=== PATIENT | male | born 1990 | race Caucasian/White ===

== ENCOUNTER 2020-10-28 23:41 | Emergency (ER) | payer MEDICAID, SELFPAY ==
[2020-10-28 23:41] VITALS: BP 128/73; PULSE 73; RESP 16; TEMP 36; O2SAT 98; BMI 22.6
[2020-10-28] MEDS: Lidocaine 1% (20 ml mdv) 20 ML Vial INFILT (23:54)
--- NOTE | 2020-10-29 00:02 | ED.VIS.GEN ---
History of Present Illness Chief Complaint: Dental Narrative: Patient presents with dental pain, this started a few days ago, he has chronic recurrent dental pain and widespread dental decay. He has no fever or chills. He also wants me to assess why his feet are more sweaty than normal. He has no fever or chills he has no chest pain shortness of breath, he has no trauma to his feet. He denies being out in the cold. Past Medical History - Allergies and Home Meds Allergies/Adverse Reactions: Allergies No Known Allergies Allergy (Verified 10/28/20 23:43) Primary Care Physician: NOT,DEFINED [Primary Care Provider] - Past Medical History: None Smoking Status: Former smoker Review of Systems All systems negative except as indicated General: Denies: Fever Eyes: Denies: Visual changes - bilaterally ENT: Reports: - - Dental pain as in HPI Respiratory: Denies: Dyspnea, Cough Gastrointestinal: Denies: Abdominal pain Musculoskeletal: Reports: Extremity Pain Skin: Reports: Rash, - Neurological: Denies: Weakness Hematologic: Denies: Easy bruising, Easy bleeding Physical Exam Vital Signs/Narrative: Vital Signs Temp Pulse Resp BP Pulse Ox 10/28/20 23:41 96.8 F L 73 16 128/73 H 98 General: Well nourished, Well developed Head: Normocephalic, Atraumatic Eyes: Negative for: Pale conjunctiva ENT: - - Widespread dental decay, there is an abscess left lower second molar region, this is a periapical abscess, there is surrounding dental decay to both the molars. Neck: Supple Cardiovascular: Regular rate, Regular rhythm Respiratory: No distress Abdomen: Soft, Nontender Extremities: - - He has tenderness over his feet but no cellulitis see below Skin: - - Very faint erythematous rash over his feet, it is blanching. There is no signs of calor or cellulitis. 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 Patient will be placed on antibiotics. Procedure note: Incision and drainage of dental abscess Verbal consent 1% lidocaine, total of 2 mL were inserted 11. Blade I incised the abscess and its self draining. Patient tolerated procedure well. ED Disposition - Plan for ED Patient: Disposition: Psychiatric Hospital or Unit Diagnosis: Dental abscess, Dyshidrosis Instructions: Dental Abscess Prescriptions: Penicillin V Potassium 500 mg PO 4X/DAY #40 tab Transmission Status: Pending to [facility] #30 Referrals: NOT,DEFINED [Primary Care Provider] - 2 Days
[2020-10-29] MEDS: Penicillin Vk 250 MG Tablet 500 MG PO (00:18)
== END 2020-10-29 00:29 | disposition home or self-care (01) ==
LOC: ED 10-29 00:27
PROVIDERS: Emergency Provider Emergency Medicine
DX: K04.7 Periapical abscess without sinus (principal); L30.1 Dyshidrosis [pompholyx]; Z87.891 Personal history of nicotine dependence
CPT/HCPCS: 41800; 64999; 99283

== ENCOUNTER 2021-01-31 16:24 | Emergency (ER) | payer MEDICAID, SELFPAY ==
[2021-01-31 16:26] VITALS: BP 134/83; PULSE 94; RESP 18; TEMP 36.4; O2SAT 95; BMI 22.6
--- NOTE | 2021-01-31 16:59 | ED.VISSUMM ---
- ER Visit Summary Date of Service: 01/31/21 Chief Complaint: Possible Covid History of Present Illness: The patient is a 30 M who presents with possible COVID-19. Patient states that over the past 3 days he has been having some fatigue and weakness. Patient states this is generalized. Patient states nothing makes it better nothing makes it worse. Patient denies any loss of taste or smell. Patient states there have been some of his coworkers who have recently tested positive for COVID-19. Patient denies any shortness of breath or cough. Patient denies any fevers or chills. Patient denies any chest pain. Physical Examination: Vital signs are stable. Patient is afebrile. Patient is in no acute distress. Oral mucosa is pink and moist. Neck is supple. Trachea is midline. There is no JVD noted. Heart was regular rate and rhythm. Lungs are clear but diminished bilaterally. Abdomen is soft. Bowel sounds are normal. There is no tenderness. There is no rebound or guarding noted. Skin is warm dry. Cranial nerves II through XII are intact. There are no focal motor or sensory deficits noted. Extremities are intact. There is no calf tenderness or edema. Test Results: COVID-19 rapid antigen was obtained and was negative. Emergency Department Course and Treatment: Patient was advised of his findings. Patient was instructed to drink plenty of fluids. Patient was instructed to follow-up with his primary care physician in 5 to 7 days. Patient understood and was agreeable with the plan. All questions were answered. Disposition: Discharge home Impression: Viral illness This note was generated with [employer] dictation software. It may contain incorrect words, spelling, and punctuation that were not noted in review of the chart prior to signing ED Disposition - Plan for ED Patient: Disposition: Home or Assisted Living Diagnosis: Viral illness Instructions: ED Viral Syndrome (Adult) Referrals: NOT,DEFINED [NON-STAFF] - 5-7 Days
[2021-01-31 18:00] VITALS: PULSE 88; RESP 16; O2SAT 98
== END 2021-01-31 18:00 | disposition home or self-care (01) ==
PROVIDERS: Emergency Provider Emergency Medicine
DX: B34.9 Viral infection, unspecified (principal); Z20.822 Contact with and (suspected) exposure to COVID-19; Z72.0 Tobacco use
CPT/HCPCS: 87426; 99282

== ENCOUNTER 2021-02-02 11:05 | Emergency (ER) | payer MEDICAID, SELFPAY ==
[2021-02-02 11:07] VITALS: BP 135/77; PULSE 92; RESP 16; TEMP 36.6; O2SAT 97; BMI 22.6
--- NOTE | 2021-02-02 11:21 | RAD_ITS ---
STUDY: X-RAY - RIGHT HAND REASON FOR EXAM: Male, 30 years old. injury TECHNIQUE: 4 view(s) of the hand. COMPARISON: None. FINDINGS: Normal radiocarpal articulation. Normal distal radioulnar joint. Normal visualized carpal bones. Normal carpal articulations Normal carpometacarpal articulation of the thumb. Normal second through fifth carpometacarpal joints. Normal metacarpi. Normal metacarpophalangeal joint of the thumb. Normal interphalangeal joint of the thumb. Normal proximal and distal phalanges of the thumb. Normal metacarpophalangeal joints of the second through fifth fingers. Normal proximal and distal interphalangeal joints of the second through fifth fingers. Normal phalanges of the second through fifth fingers. The soft tissue structures are unremarkable. RAD/Hand Min 3 Views IMPRESSION: Normal x-ray examination of the hand. Electronically Signed: Demetrius Chi MD at 12:10 EDT Tel , Service support ,
--- NOTE | 2021-02-02 11:21 | RAD_ITS ---
STUDY: X-RAY - RIGHT WRIST REASON FOR EXAM: Male, 30 years old. injury TECHNIQUE: 3 view(s) of the wrist were obtained. COMPARISON: None. FINDINGS: Normal visualized distal radius and ulna. Normal radiocarpal articulation. Normal distal radioulnar articulation. Normal carpal bones. Normal carpal articulations. Normal carpometacarpal articulation of the thumb. Normal second through fifth carpometacarpal articulations. Normal visualized metacarpal bones. The soft tissue structures are unremarkable. RAD/Wrist min 3 Views IMPRESSION: Normal x-ray examination of the wrist. Electronically Signed: Demetrius Chi MD at 12:10 EDT Tel , Service support ,
--- NOTE | 2021-02-02 11:23 | ED.DCSUM_ITS ---
History of Present Illness Chief Complaint: Upper Extremity Injury Informant: Patient Occurred: Yesterday Mechanism/Context: Fall, Slip - wet landscape timber, FOOSH Context: Sudden Onset Timing: Continuous Quality of Pain: Aching Location: R hand 5th ray, wrist Current Severity: Moderate Maximum Severity: Severe Worsened by: movement Relieved by: remaining still Associated Symptoms: Negative for: Parasthesia, Weakness, Loss of Funtion Narrative: Patient had an accidental fall onto outstretched hand yesterday, he is right- hand dominant. Painful to bend his fingers with regards to the fifth metacarpal, he has some pain around the distal ulna/carpus but only when he supinates/pronates. Past Medical History - Allergies and Home Meds Allergies/Adverse Reactions: Allergies No Known Allergies Allergy (Verified 01/31/21 16:25) Primary Care Physician: Care Physician,No Primary [Primary Care Provider] - Past Medical History: None Smoking Status: Current every day smoker Review of Systems General: Denies: Chills, Fever, Sweats Musculoskeletal: Reports: Extremity Pain. Denies: Swelling Skin: Denies: Rash, Wounds - No break in skin or bleeding Neurological: Denies: Headache, Weakness, Numbness Physical Exam Vital Signs/Narrative: Vital Signs Temp Pulse Resp BP Pulse Ox 02/02/21 11:07 97.8 F 92 16 135/77 H 97 General: Well nourished, Well developed, - - Well-appearing NAD Head: Normocephalic, Atraumatic ENT: No Trauma, Moist Mucous Membranes Extremeties: Tenderness at the distal aspect of the right fifth metacarpal. Finger itself is nontender. Base of the metacarpals are nontender and without deformity. There is a very slight rotational deformity of the right small finger suggesting slight external rotation of the proximal phalanx on the metacarpal. No bony wrist tenderness, he has some pain with extreme pronation or supination, but is able to range it otherwise without difficulty or pain. Skin: Normal color - Except for skin overlying right MCP J which is erythematous, but the skin is intact, No rash, No Trauma Neurological: Alert, Oriented x3, Cranial nerves II-XII grossly intact, Normal Strength, Normal Sensation Psychological: Normal affect Diagnostic/Tx/Re-eval Clinical Impression(s) from Imaging Studies Hand X-Ray 02/02/21 11:21 IMPRESSION: Normal x-ray examination of the hand. Electronically Signed: Demetrius Chi MD at 12:10 EDT Tel , Service support , Wrist X-Ray 02/02/21 11:21 IMPRESSION: Normal x-ray examination of the wrist. Electronically Signed: Demetrius Chi MD at 12:10 EDT Tel , Service support , - Medical Decision Making On my interpretation 4 view x-ray series of the right hand is negative, and 3 v iew x-ray series of the right wrist is negative. Radiology confirms both of these. Patient was reassured, he probably sprained this, the rotational deformity that I possibly found was very subtle if present and probably is his normal. He was given an Arnold wrap NSAID and appropriate discharge instructions. ED Disposition - Plan for ED Patient: Disposition: Home or Assisted Living Diagnosis: Sprain of finger of right hand Instructions: ED Hand Sprain Referrals: Malou Mancilla [NON-STAFF] - 1-2 Weeks (if not improving) Additional Instructions: Ice, ibuprofen as needed for pain
[2021-02-02] MEDS: Naproxen 500 MG Tablet PO (13:00)
== END 2021-02-02 13:00 | disposition home or self-care (01) ==
PROVIDERS: Emergency Provider Emergency Medicine
DX: S63.616A Unspecified sprain of right little finger, initial encounter (principal); F17.200 Nicotine dependence, unspecified, uncomplicated; W01.0XXA Fall on same level from slipping, tripping and stumbling without subsequent striking against object, initial encounter; Y93.89 Activity, other specified; Y92.89 Other specified places as the place of occurrence of the external cause; Y99.8 Other external cause status
CPT/HCPCS: 73110; 73130; 99283

== ENCOUNTER 2021-02-11 06:33 | Emergency (ER) | payer MEDICAID, SELFPAY ==
[2021-02-11 06:35] VITALS: BP 127/93; PULSE 74; RESP 16; TEMP 36.2; O2SAT 97; BMI 22.7
--- NOTE | 2021-02-11 06:44 | RAD_ITS ---
STUDY: X-RAY CHEST REASON FOR EXAM: Male, 30 years old. cough TECHNIQUE: Single AP portable view of the chest. COMPARISON: None. FINDINGS: There are no confluent pulmonary infiltrates. There is no demonstrated pleural abnormality. Normal size heart. Normal mediastinum and gris. Normal visualized aortic arch and descending thoracic aorta. There are no demonstrated acute fractures or destructive bone lesions. There is no demonstrated abnormality of the visualized soft tissue structures of the upper abdomen. RAD/Chest 1 View (Portable) IMPRESSION: Normal x-ray examination of the chest. Electronically Signed: Naveen Hill MD at 7:20 EDT , Service support ,
--- NOTE | 2021-02-11 07:17 | ED.VIS.GEN ---
History of Present Illness Chief Complaint: General Illness Informant: Patient Onset: Days Context: Gradual Onset Timing: Continuous Narrative: Patient evaluated for 1 week of upper respiratory symptoms. He states he has had runny nose, postnasal drip and cough. He states there is so much mucus that is going to his stomach making him feel nauseous. He states the mucus is clear. He denies any fever or chills. He denies any sick contacts. He states he has had both Covid vaccines. He has tried beji-bwi-rhhwpla decongestants and nasal sprays. He states that helped temporarily but then the symptoms come back. He denies any significant history of seasonal allergies. He does smoke cigarettes. No other complaints at this time. Past Medical History - Allergies and Home Meds Allergies/Adverse Reactions: Allergies No Known Allergies Allergy (Verified 02/11/21 06:34) Primary Care Physician: Care Physician,No Primary [Primary Care Provider] - Past Medical History: None Surgical History: noncontributory Smoking Status: Former smoker Review of Systems General: Reports: Malaise. Denies: Chills, Fever, Sweats Eyes: Denies: Visual changes - bilaterally, Diplopia ENT: Reports: Rhinorrhea. Denies: Bilateral ear pain, Sore throat Cardiovascular: Denies: Chest pain, Palpitations Respiratory: Reports: Cough, Sputum. Denies: Dyspnea, Dyspnea on exertion Gastrointestinal: Denies: Abdominal pain, Nausea, Vomiting, Diarrhea, Melena, Hematochezia Genitourinary: Denies: Dysuria, Hematuria, Frequency Musculoskeletal: Denies: Back pain, Extremity Pain Skin: Denies: Rash, Wounds Neurological: Denies: Headache, Weakness, Numbness Physical Exam Vital Signs/Narrative: Vital Signs Temp Pulse Resp BP Pulse Ox 02/11/21 06:35 97.2 F L 74 16 127/93 H 97 Inital Vital Signs reviewed: Yes General: Well nourished, Well developed, No Acute Distress Head: Normocephalic, Atraumatic Eyes: Perrl, EOMI ENT: Moist mucous membranes, Nasal congestion, - - Poor dentition. Posterior pharynx erythema. No tonsillar exudates or swelling noted.. Negative for: Sinus tenderness Neck: Supple, Nontender. Negative for: No lymphadenopathy - Mild, bilateral Cardiovascular: Regular rate, Regular rhythm, No murmurs Respiratory: No distress, Chest nontender, - - Mild crackles throughout Abdomen: Soft, Nontender, Nondistended, Normal bowel sounds Back: Nontender, Normal Inspection Extremities: Nontender, No edema Skin: Normal color, No rash Neurological: Alert, Oriented x3, Cranial nerves II-XII grossly intact, Normal Strength, Normal Sensation Psychological: Normal affect, Normal Mood Diagnostic/Tx/Re-eval Chest X-Ray - ED: 1 View, Read by ED Physician, Read by Radiologist, No Acute Disease Clinical Impression(s) from Imaging Studies Chest X-Ray 02/11/21 06:44 IMPRESSION: Normal x-ray examination of the chest. Electronically Signed: Naveen Hill MD at 7:20 EDT , Service support , - Medical Decision Making Patient is evaluated for rhinorrhea and congestion. He is well-appearing. His vital signs are normal. Differential includes viral syndrome versus seasonal allergies. Chest x-ray does not show any acute infiltrate. Covid test is negative. Patient be treated symptomatically. I do not think he needs any antibiotics. Instructed to use decongestions, Zyrtec and Flonase. Instructed to follow-up with her primary care doctor. Counseled return precautions. Verbalizes agreement understand with this plan. Patient is referred to PCP from the no doc list. Patient is counseled on signs and symptoms requiring return to the emergency room. Patient verbalizes agreement and understand this plan. Patient discharged home in stable and improved condition. ED Disposition - Plan for ED Patient: Disposition: Home or Assisted Living Diagnosis: URI (upper respiratory infection) Instructions: ED URI, Viral, No Abx (Adult) Prescriptions: Fluticasone 0.05% [Flonase Nasal [place]] 1 spray NASAL DAILY #1 bottle Transmission Status: Pending to [facility] #30 Cetirizine HCl [Zyrtec] 10 mg PO DAILY #14 tablet Transmission Status: Pending to [facility] #30 Referrals: Cris Mcnamara MD [STAFF PHYSICIAN] - Additional Instructions: Use hfbb-vyo-luvkroo decongestant such as Mucinex DM for symptom control. The typical course will run 2 to 3 weeks. Use oimq-uzf-elagega cough medications as needed. Follow-up with primary care doctor return the emergency room if no improvement or worsening respiratory symptoms
== END 2021-02-11 07:38 | disposition home or self-care (01) ==
PROVIDERS: Emergency Provider Emergency Medicine
DX: J06.9 Acute upper respiratory infection, unspecified (principal); F17.210 Nicotine dependence, cigarettes, uncomplicated
CPT/HCPCS: 71045; 87426; 99282

== ENCOUNTER 2021-06-03 07:51 | Emergency (ER) | payer MEDICAID, SELFPAY ==
[2021-06-03 07:52] VITALS: BP 107/80; PULSE 71; RESP 16; TEMP 36.4; O2SAT 97; BMI 22.4
--- NOTE | 2021-06-03 08:11 | EKG12_ITS ---
Test Reason : CP Blood Pressure : / mmHG Vent. Rate : 062 BPM Atrial Rate : 062 BPM P-R Int : 148 ms QRS Dur : 106 ms QT Int : 404 ms P-R-T Axes : 044 -30 062 degrees QTc Int : 410 ms Normal sinus rhythm Left axis deviation Abnormal ECG Confirmed by DOLLY REYES, LAKSHMI ([id number]), legal editor CRISTOFER MACEDO ([id number]) on 06/06/2021 9:18:25 AM Referred By: NORIS Confirmed By:AGNIESZKA ALBERTO MD
--- NOTE | 2021-06-03 08:11 | RAD_ITS ---
STUDY: X-RAY CHEST REASON FOR EXAM: Male, 30 years old. 2 day history of chest pain worse with deep inspiration. TECHNIQUE: PA and lateral views of the chest. COMPARISON: Comparison is made with prior study dated 02/11/2021. FINDINGS: Hyperinflation. There is no demonstrated pleural abnormality. Normal size heart. Normal mediastinum and gris. There is prominence of the pulmonary hilar arteries without peripheral pulmonary vascular congestion, suggesting pulmonary hypertension. Normal visualized aortic arch and descending thoracic aorta. Normal visualized thoracic spine. Normal visualized ribs, clavicles, and shoulders. There is no demonstrated abnormality of the visualized soft tissue structures of the upper abdomen. RAD/Chest PA and Lateral IMPRESSION: Hyperinflation. Prominence of the central pulmonary arteries. Electronically Signed: Raffy Dowd MD at 8:45 EDT , Service support ,
--- NOTE | 2021-06-03 08:12 | EDS_ITS ---
HPI History of Present Illness Chief Complaint: Chest Other Detail of Chief Complaint: Left-sided chest pain that started yesterday Informant: patient Narrative Narrative: Patient states that he got up for work yesterday and was having left- sided chest pain. He denies any injury or any lifting injury. Patient states pain is worse with certain movements and deep breath. He has never had pain like this before. He rates his pain currently an 8 out of 10. Denies any shortness of breath but does hurt to take a deep breath. Denies recent travel or surgery. No history of PE or DVT. [facility] Medical History (Updated 06/03/21 @ 09:[address] Trevon Chance, DO) Back pain Home Medications hydrocodone-acetaminophen 1 tab PO Q4H PRN PRN 2 Days #10 tablet 06/03/21 [Rx Last Taken Unknown] hydrocodone-acetaminophen 1 tab PO Q6H PRN PRN 06/03/21 [History Last Taken Unknown] ibuprofen 1 mg PO Q8H PRN PRN 06/03/21 [History Last Taken Unknown] Allergy/AdvReac Type Severity Reaction Status Date / Time No Known Allergies Allergy Verified 06/03/21 07:51 Social History Smoking Status: Former smoker ROS ROS ED Review of Systems ROS Unobtainable: other Constitutional Constitutional ED: Reports lethargy; Denies chills, fever(s), sweats or weight loss Eyes Eyes: Denies blurry vision, change in vision or diplopia ENT ENT ED: Denies rhinorrhea or sore throat Cardiovascular Cardiovascular: Reports chest pain; Denies orthopnea or racing heartbeat Respiratory/Chest Respiratory/Chest: Reports dyspnea and dyspnea on exertion; Denies cough, orthopnea or sputum Gastrointestinal Gastrointestinal: Denies abdominal pain, diarrhea, nausea or vomiting Genitourinary Genitourinary ED: Denies dysuria, hematuria or urinary frequency Musculoskeletal Musculoskeletal: Denies arthralgias, back pain, myalgias or neck pain Integumentary Denies abscess, Abrasions or rash Neurologic Neurologic: Denies headache(s) or weakness Psychiatric Psychiatric: Denies anxiety, depression or suicidal thoughts Endocrine Endocrinology: Denies polydipsia, polyphagia or polyuria Hematologic/Lymphatic Hematologic/Lymphatic: Denies easy bleeding, easy bruising or lymphadenopathy Allergic/Immunologic Allergic/Immunologic ED: Denies mouth swelling, tongue swelling or urticaria EXAM Physical Exam Const Vital Signs: 06/03/21 07:52 06/03/21 07:57 Temperature 97.6 F L Temperature Source Temporal Pulse Rate 71 Respiratory Rate 16 Respiratory Effort Normal Non-Labored Respiratory Pattern Normal Blood Pressure 107/80 Blood Pressure Mean 89 Pulse Ox 97 Oxygen Delivery Method Room Air Positive well nourished and well developed General Appearance ED: well developed and NAD HEENT Reports TM's clear and moist mucous membranes normocephalic and atraumatic; Negative for trauma or tenderness Tympanic Membrane ED: Yes TM's clear Eyes PERRL and EOMs intact bilaterally General Eye ED: Negative for pale conjunctiva or scleral icterus Neck no lymphadenopathy, supple and no JVD General: Negative for tenderness Chest Wall inspection of chest normal and palpation of chest normal Chest: Negative for tenderness Resp normal respiratory effort and clear to auscultation bilaterally Resp Narrative: Patient has some discomfort with palpation the left chest wall that seems to somewhat reproduce his pain. Effort and Inspection: pain with movement; Negative for respiratory distress Auscultation: Negative for rhonchi, wheezes or diminished lung sounds Cardio regular rate, regular rhythm, S1 normal heart sound, S2 normal heart sound and no murmurs Peripheral Pulses: pulses 2+ throughout GI normal to inspection, nondistended, normoactive bowel sounds, soft to palpation, non-tender, non-distended and no masses Back/Spine no CVA tenderness and no thoracic nor lumbar tenderness Extremity normal to inspection General Extremety ED: Negative for edema General Extremity: Negative for edema Neuro oriented x3, CN's II-XII intact bilaterally, no sensory deficits noted and gait normal Sensorium / Orientation: awake, alert, oriented to person, oriented to place and oriented to time Motor Exam: strength 5/5 throughout and strength abnormal Psych mental status grossly normal Skin no rashes or lesions noted and no wounds Heart Score History: Slightly/Non-Suspicious ECG: Normal Age: </= 45 years Risk Factors: 1 or 2 Risk Factors Troponin: </= Normal Limit Score: 1 MDM MDM MDM Narrative Medical decision making narrative: Etiology of patient's chest pain unclear although I suspect likely musculoskeletal chest pain. Patient will be given a prescription for few [place] for pain. He did receive some Toradol in the department but really did not have much pain relief with that. 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 Patient advised return if worsening pain increasing shortness of breath, or conditions worsen anyway. Lab Data Attestation: I reviewed the patient's lab results. Labs: Laboratory Results - last 24 hr 06/03/21 06/03/21 06/03/21 08:25 08:25 08:25 WBC 6.7 RBC 5.37 Hgb 16.3 Hct 47.3 MCV 88.1 MCH 30.4 MCHC 34.5 RDW Std Deviation 41.5 RDW Coeff of [place] 12.9 Plt Count 169 MPV 10.6 Immature Gran % (Auto) 0.300 Neut % (Auto) 61.6 Lymph % (Auto) 27.2 [place] % (Auto) 7.3 Eos % (Auto) 3.0 Baso % (Auto) 0.6 Absolute Neuts (auto) 4.1 Absolute Lymphs (auto) 1.83 Nucleated RBC % 0 D-Dimer Quant (PE/DVT) <= 0.27 Sodium 139 Potassium 4.2 Chloride 106 Carbon Dioxide 29.0 Anion Gap 4 L BUN 12 Creatinine 0.90 Estim Creat Clear Calc 106.14 Est GFR (MDRD) Af Amer 127 Est GFR (MDRD) Non-Af 105 BUN/Creatinine Ratio 13.4 Glucose 95 Calcium 8.7 Troponin I High Sens 3.6 Radiography Chest X-Ray - ED: 1 View Diagnostic Testing: Radiology Impression Chest X-Ray 06/03/21 08:11 IMPRESSION: Hyperinflation. Prominence of the central pulmonary arteries. Electronically Signed: Raffy Dowd MD at 8:45 EDT , Service support , 1 view chest x-ray obtained interpreted by myself as no acute disease process. Radiology was in agreement. EKG Initial EKG: Attestation: I personally reviewed and interpreted this EKG as follows: Comments: Sinus rhythm with a ventricular rate of 62 bpm with a left axis deviation Prior EKG tracings: not available for review Discharge Plan Triage Chief Complaint: Chest Other ED Provider: Trevon Chance Dx/Rx/DC Orders Clinical Impression: Acute chest wall pain Instructions: ED Chest Wall Pain, Costochondritis Prescriptions: New hydrocodone-acetaminophen [hydrocodone-acetaminophen] 1 TABLET tablet 1 tab PO Q4H PRN PRN (Reason: Pain) 2 Days Qty: 10 RF: 0 No Action hydrocodone-acetaminophen 5-325 mg tablet 1 tab PO Q6H PRN PRN (Reason: Pain) RF: 0 ibuprofen 600 mg tablet 1 mg PO Q8H PRN PRN (Reason: Pain) RF: 0 Primary Care Provider: Care Physician,No Primary Referrals: Luke Arriola MD [STAFF PHYSICIAN] - 3-5 Days Care Physician,No Primary [Primary Care Provider] - Disposition Disposition: Home, Self Care
[2021-06-03 08:38] LABS: Absolute Lymphocyte Count 1.83 X10^3/uL (0.83-4.51); Absolute Neutrophil Count 4.1 X10^3/uL (2.0-7.7); Basophil# 0.04 X10^3/uL; Basophil% 0.6 % (0-1); Hematocrit 47.3 % (40-54); Hemoglobin 16.3 g/dL (13.0-16.5); Lymphocyte # 1.83 X10^3/ul (0.83-4.51); Lymphocyte % 27.2 % (19-41); Mean Corp Hgb Conc 34.5 g/dL (32-36); Mean Corpuscular Hgb 30.4 pg (27.0-32.0); Mean Corpuscular Volume 88.1 fL (80-94); Mean Platelet Vol. 10.6 fl (6.2-12.0); Monocyte# 0.49 X10^3/uL; Monocyte% 7.3 % (0-10); NRBC Flagged by Analyzer 0 % (0-5); Neutrophil # 4.14 X10^3/uL (2.7-7.7); Neutrophil % 61.6 % (47-70); Platelet Count 169 K/mm3 (150-450); RBC Distribution Width CV 12.9 % (11.6-14.6); RBC Distribution Width SD 41.5 fl (35.1-43.9); Red Blood Count 5.37 M/mm3 (4.6-6.2); White Blood Count 6.7 K/mm3 (4.4-11.0)
[2021-06-03] MEDS: Ketorolac 30 MG/ML Syringe IV (08:46)
[2021-06-03 08:52] LABS: Anion Gap 4 (5-15); BUN 12 mg/dL (7-18); BUN/Creat Ratio 13.4 RATIO (10-20); Calcium,Total 8.7 mg/dL (8.5-10.1); Chloride 106 mmol/L (98-107); EST Glomerular Filtration Rate 105 mL/min (>60); Est Glom Filt Rate - Afr Amer 127 mL/min (>60); Estimated Creatinine Clearance 106.14 ml/min; Glucose 95 mg/dL (74-106); Potassium 4.2 mmol/L (3.5-5.1); Sodium Level 139 mmol/L (136-145); Troponin-I HS 3.6 pg/mL (3.0-78.5)
[2021-06-03 08:57] LABS: D-Dimer Quantitative (DVT/PE) <= 0.27 FEU/ug/m (0.27-0.49)
[2021-06-03 09:17] LABS: Erythrocyte Sedimentation Rate < 1 mm/hr (0-20)
[2021-06-03 09:34] VITALS: BP 124/77; PULSE 62; RESP 15; O2SAT 98
== END 2021-06-03 09:34 | disposition home or self-care (01) ==
PROVIDERS: Emergency Provider Emergency Medicine
DX: R07.89 Other chest pain (principal); Z87.891 Personal history of nicotine dependence
CPT/HCPCS: 71046; 80048; 84484; 85025; 85379; 85652; 93005; 96374; 99283; A4216

== ENCOUNTER 2022-11-02 23:35 | Emergency (ER) | payer MEDICAID, SELFPAY ==
[2022-11-02 23:38] VITALS: BP 138/87; PULSE 82; RESP 18; TEMP 36.4; O2SAT 98; BMI 21.9
--- NOTE | 2022-11-02 23:58 | EX.ED.GUMALE ---
HPI History of Present Illness Chief Complaint: Complaint Informant: patient Narrative Narrative: Patient recently started having intercourse with a new partner, for the last couple days soon after that, he is having sharp pain at his urethra, sometimes worse to urinate, urinating more frequently. No fevers or chills. He states he has noticed some mild irritation and redness and eyelid swelling right eye, he is concerned maybe he contaminated it with the same thing. Mild intermittent sharp abdominal pains. No other symptoms. He is concerned about an STD. He is healthy otherwise. No testicular pain. PFSH PFS Medical History Back pain Home Medications doxycycline monohydrate 100 mg capsule 100 mg PO BID #14 CAPSULES 11/03/22 [Rx Last Taken Unknown] Allergy/AdvReac Type Severity Reaction Status Date / Time No Known Allergies Allergy Verified 11/02/22 23:36 Family History no significant family his Surgical History no surgical history Social History Smoking Status: Current every day smoker tobacco type: cigarettes ROS ROS ED Constitutional Constitutional ED: Denies chills or fever(s) Eyes Eyes: Reports as per HPI, erythema and irritation; Denies blurry vision or change in vision Gastrointestinal Gastrointestinal: Reports abdominal pain; Denies diarrhea, nausea or vomiting Genitourinary Genitourinary ED: Reports as per HPI and dysuria; Denies hematuria, penile swelling, scrotal pain, testicular swelling or urinary frequency Neurologic Neurologic: Denies headache(s), paresthesias or weakness EXAM Physical Exam Const Vital Signs: 11/02/22 23:38 Temperature 97.5 F L Temperature Source Temporal Pulse Rate 82 Respiratory Rate 18 Blood Pressure 138/87 H Blood Pressure Mean 104 Pulse Ox 98 Oxygen Delivery Method Room Air Positive well nourished and well developed General Appearance ED: well developed and NAD HEENT Reports moist mucous membranes and dry mucous membranes Mouth ED: Yes dry mucous membranes Mouth: dry mucous membranes Eyes Eyes Narrative: Very minor palpebral conjunctival injection/swelling right eye, no chemosis, no periorbital cellulitis. Neck supple GI non-tender and non-distended Inspection: Negative for abdominal distention Auscultation: normoactive bowel sounds Testes: Negative for testicular swelling Neuro oriented x3, CN's II-XII intact bilaterally, moves all extremities, no focal motor deficits and no sensory deficits noted Psych mental status grossly normal Skin Lesions: no lesions Rashes: no rashes MDM MDM MDM Narrative Medical decision making narrative: Urine sent for STD testing, patient treated empirically for GC and chlamydia using Rocephin to 50 mg IM, doxycycline 100 mg orally and a prescription for a weeks worth of the latter, in addition to erythromycin eye ointment. Did do a urinalysis here, it is negative for all indicators, suggesting this is not a regular bacterial cystitis/urethritis. Lab Data Attestation: I reviewed the patient's lab results. Labs: Laboratory Results - last 24 hr 11/03/22 00:05 Urine Color Yellow Urine Clarity Clear Urine pH 8.0 Ur Specific [place] 1.010 Urine Protein Negative Urine Glucose (UA) Normal Urine Ketones Negative Urine Occult Blood Negative Urine Nitrite Negative Urine Bilirubin Negative Urine Urobilinogen Normal Ur Leukocyte Esterase Negative Urine RBC 0 SEEN Urine WBC 0 SEEN Ur Squamous Epith Cells 0 SEEN Urine Bacteria 0 SEEN Urine Mucus 0 SEEN Discharge Plan Triage Chief Complaint: Complaint ED Provider: Sai Hart Dx/Rx/DC Orders Clinical Impression: Urethritis, Acute conjunctivitis of right eye Instructions: ED STI Male Treated Prescriptions: New doxycycline monohydrate 100 MG capsule 100 mg PO BID Qty: 14 0RF Primary Care Provider: Care Physician,No Primary Referrals: Malou Mancilla [Non-Staff] - 1 Week if not improving Care Physician,No Primary [Primary Care Provider] - Activity Restrictions/Additional Instructions: use eye ointment 3x/day to affected eye(s) for 4-7 days or as needed until better. Disposition Disposition: Home, Self Care
[2022-11-03] MEDS: Doxycycline 100 MG CAPSULE PO (00:03)
[2022-11-03] MEDS: Erythromycin Base 1 OPTH.TUBE 1 APPLIC RIGHT EYE (00:03)
[2022-11-03] MEDS: Ceftriaxone 500 MG Vial 250 MG IM (00:07)
[2022-11-03 00:13] LABS: Bacteria 0 SEEN /hpf (None Seen); Mucous, Urine 0 SEEN /hpf (<or=2+); Red Blood Cells-Urine 0 SEEN /hpf (0-5); Squamous Epithelial Cells - UA 0 SEEN /hpf (0-5); White Blood Cells 0 SEEN /hpf (0-5)
[2022-11-03 00:20] LABS: Color, Urine Yellow (Yellow); Glucose, Dipstick Normal (Normal); Ketone-Dipstick Negative (Negative); Leukocyte Esterase-Dipstick Negative /ul (Negative); Nitrite-Dipstick Negative (Negative); Occult Blood-Urine Negative /ul (Negative); Protein-Dipstick Negative (Negative); Urine Bilirubin Dipstick Negative (Negative); Urine Clarity Clear (Clear); Urine Urobilinogen Normal (Normal)
[2022-11-03 04:45] LABS: Chlamydia Trachomatis by PCR Negative (Negative); Neisserai gonorrhoeae by PCR Negative (Negative); Probe Check PASS; Sample Adequacy Control PASS; Specimen Processing Control PASS
== END 2022-11-03 00:42 | disposition home or self-care (01) ==
PROVIDERS: Emergency Provider Emergency Medicine; Visit Provider Emergency Medicine
DX: N34.2 Other urethritis (principal); H10.31 Unspecified acute conjunctivitis, right eye; F17.210 Nicotine dependence, cigarettes, uncomplicated; R30.0 Dysuria; Z11.3 Encounter for screening for infections with a predominantly sexual mode of transmission
CPT/HCPCS: 81001; 87491; 87591; 96372; 99282